=== PATIENT | female | born 1980 | race Caucasian/White ===

== ENCOUNTER 2020-06-08 01:49 | Emergency (ER) | payer OTHER ==
[2020-06-08 02:06] VITALS: BP 121/89
--- NOTE | 2020-06-08 02:53 | RADIOLOGY REPORT (SQ) ---
EXAM DESCRIPTION: CT HEAD WITHOUT IV CONTRAST COMPLETED DATE/TME: 06/08/2020 02:16 CLINICAL HISTORY: 40 years, Female, head injury after fall, + etoh COMPARISON: None. TECHNIQUE: Axial CT images of the brain were obtained without contrast. Sagittal and coronal reformats were performed. DLP 990 Images stored on PACS. All CT scanners at this facility use dose modulation, iterative reconstruction, and/or weight based dosing when appropriate to reduce radiation dose to as low as reasonably achievable (ALARA). [facility]: Dose Right [facility]: CareDose [facility]: Dose Right [facility]: Teradose 4D [facility]: [employer] LIMITATIONS: None. FINDINGS: There is a soft tissue swelling with subcutaneous emphysema along the right parietal scalp near the vertex. There is no underlying fracture. There is no acute cortical infarct, hemorrhage, mass, edema, hydrocephalus, or extra-axial fluid collection. The mckenna-white matter differentiation is normal. The paranasal sinuses and mastoid air cells are clear. IMPRESSION: No acute intracranial abnormality. Soft tissue swelling with subcutaneous emphysema along the right parietal scalp near the vertex. No underlying fracture. TECHNICAL DOCUMENTATION: Quality ID # [id number]: Final reports with documentation of one or more dose reduction techniques (e.g., Automated exposure control, adjustment of the mA and/or kV according to patient size, use of iterative reconstruction technique) copyright 2011 [employer]- All Rights Reserved
--- NOTE | 2020-06-08 03:07 | RADIOLOGY REPORT (SQ) ---
INDICATION: head injury intoxicated. COMPARISON: None CORRELATION: None TECHNIQUE: Noncontrast spiral axial CT images were obtained through the cervical spine with multiplanar reconstructions. This exam was performed according to our departmental dose-optimization program, which includes automated exposure control, adjustment of the mA and/or kV according to patient size and/or use of iterative reconstruction techniques. FINDINGS: No acute displaced fracture is identified of the cervical spine. Alignment is anatomic. . The uncovertebral joints and facets are within normal limits, for age. Reversal the normal cervical lordosis centered on C4-C5 Surrounding soft tissues of the neck are unremarkable. The pharynx appears symmetric. Thyroid is homogeneous. The lung apices are grossly clear. IMPRESSION: Imaging is degraded by patient motion, with resultant artifact. The best possible images were obtained. No acute bony injury is seen to the cervical spine. Reversal of the normal cervical lordosis centered on C4-C5 upper half due to positioning or spasm.
[2020-06-08] MEDS ORDERED: LIDOCAINE 2%/EPINEPHRINE INJ 20 ML VIAL INJ ONE (03:14)
--- NOTE | 2020-06-08 05:34 | ER Document Report ---
Entered by APOORVA CONROY SCRIBE 06/08/20 0219 Acting as scribe for:JENNIFER HODGE IV, MD ED Fall - General Chief Complaint: Fall Injury Stated Complaint: ETOH/HEAD INJURY Time Seen by Provider: 06/08/20 02:10 Primary Care Provider: PADMA DOSHI PA-C [Primary Care Provider] - 06/12/20 Mode of Arrival: Medic Information source: Patient, Friend, Emergency Med Personnel Notes: This 40 year old female patient brought in by EMS from home presents to the ED today with complaints of a fall with a head laceration that occurred just prior to arrival. Per ED nurse, patient was celebrating her birthday and has been drinking since 1700. Patient states that she fell and hit the right side of her head on the dresser. Friend at beside reports LOC. Tetanus is UTD within the past x4-5 years. - Related data Allergies/Adverse Reactions: No Known Allergies Allergy (Unverified 06/08/20 02:09) Past Medical History - General Information source: Patient, [facility] Records - Social History Smoking Status: Current Every Day Smoker Cigarette use (# per day): Yes Smoking Education Provided: No Frequency of alcohol use: Social Lives with: Spouse/Significant other Family History: Reviewed & Not Pertinent Patient has suicidal ideation: No Patient has homicidal ideation: No Review of Systems - Review of Systems Constitutional: No symptoms reported EENT: No symptoms reported Cardiovascular: No symptoms reported Respiratory: No symptoms reported Gastrointestinal: No symptoms reported Genitourinary: No symptoms reported Female Genitourinary: No symptoms reported Musculoskeletal: No symptoms reported Skin: See HPI, Other - Laceration Hematologic/Lymphatic: No symptoms reported Neurological/Psychological: See HPI, Lost consciousness, Headaches -: Yes All other systems reviewed and negative Physical Exam - Vital signs Vitals: Temp Pulse Resp BP Pulse Ox 97.3 F 93 16 121/89 H 96 06/08/20 01:57 06/08/20 01:57 06/08/20 01:57 06/08/20 01:57 06/08/20 01:57 - General General appearance: Alert In distress: None - HEENT Head: No: Atraumatic - 2 cm semilunate laceration to right parietal region Eyes: Normal Extraocular movements intact: Yes Pupils: PERRL - Respiratory Respiratory status: No respiratory distress Chest status: Nontender Breath sounds: Normal Chest palpation: Normal - Cardiovascular Rhythm: Regular Heart sounds: Normal auscultation Murmur: No Friction rub: No Gallop: None auscultated - Abdominal Inspection: Normal Distension: No distension Bowel sounds: Normal Tenderness: Nontender - Abdomen soft Organomegaly: No organomegaly - Back Back: Normal, Nontender - Extremities General upper extremity: Normal inspection General lower extremity: Normal inspection - Neurological Neuro grossly intact: Yes - Psychological Associated symptoms: Normal affect, Normal mood - Skin Skin irregularity: Laceration - 2 cm Location of irregularity: Scalp - Right parietal region Character of irregularity: Other - Semilunate Course - Re-evaluation Re-evalutation: 06/08/20 04:05 Results of ED MSE discussed with patient and patient's significant other. All questions were answered prior to discharge. Emergency signs and symptoms, reasons to return to the emergency department discussed with patient and patient's significant other. - Vital Signs Vital signs: Temp Pulse Resp BP Pulse Ox 97.3 F 93 16 121/89 H 96 06/08/20 01:57 06/08/20 01:57 06/08/20 01:57 06/08/20 01:57 06/08/20 01:57 - Diagnostic Test Radiology reviewed: Reports reviewed Procedures - Laceration/Wound Repair Right Posterior Head Time completed: 04:07 Wound length (cm): 2 Wound's Depth, Shape: Other - semilunar Laceration pre-procedure: Sterile PPE donned, Shur-Clens applied Anesthetic type: 2% Lidocaine Volume Anesthetic (mLs): 5 Wound explored: Clean Irrigated w/ Saline (mLs): 30 Wound Repaired With: [place] Layer Closure?: No Post-procedure NV exam normal: Yes Discharge - Discharge Clinical Impression: Accidental fall Qualifiers: Encounter type: initial encounter Qualified Code(s): W19.XXXA - Unspecified fall, initial encounter Scalp laceration Qualifiers: Encounter type: initial encounter Qualified Code(s): S01.01XA - Laceration without foreign body of scalp, initial encounter Condition: Stable Disposition: HOME, SELF-CARE Additional Instructions: Keep your wound clean and dry. You may shower but avoid submerging your head in a tub, pool or other body of water. You can apply a small amount of bacitracin or Neosporin to the area daily. Follow-up with your doctor in 5 days to have the laci removed. Return to the Emergency Department without delay if any worse. HOME CARE INSTRUCTIONS & INFORMATION: Thank you for choosing us for your medical needs. We hope you're satisfied with the care you received. After you leave, you must properly care for your problem and, at the same time, observe its progress. Any condition can change. Some illnesses can change rapidly over hours or days. If your condition worsens, return to the Emergency Department or see your physician promptly. ABOUT YOUR X-RAYS AND EKG'S: If you had an EKG or X-rays taken, they have been read by the Emergency Physician. The X-rays and EKG's will also be read by a Radiologist or [employer] within 24 hours. If discrepancies are noted, you will be notified by telephone. Please be certain the ED has a correct telephone number & address where you can be reached. Also, realize that some fractures or abnormalities do not show up on initial X-rays. If your symptoms continue, see your physician. ABOUT YOUR LABORATORY TEST: If you had laboratory tests, the results have been reviewed by the Emergency Physician. Some test results (for example cultures) may not be available for several days. You will be contacted if any test result shows you need additional treatment. Please be certain the ED has a correct telephone number and address where you can be reached. ABOUT YOUR MEDICATIONS: You will receive instructions on how to take your medicine on the prescription label you receive. Additional information may be provided by the Pharmacy. If you have questions afterwards, call the ED for clarification or further instructions. Some prescribed medications may cause d rowsiness. Do not perform tasks such as driving a car or operating machinery without consulting your Pharmacist. If you feel you need a refill of pain medication, your condition will need re-evaluation. Please do not call for a refill of any medication. ABOUT YOUR SIGNATURE: Signature of this document acknowledges to followin. Understanding that you received emergency treatment and that you may be released before al medical problems are known or treated. Please be certain the ED has a correct phone number & address where you can be reached. 2. Acknowledgement that you will arrange for follow-up care as recommended. 3. Authorization for the Emergency Physician to provide information to your follow-up Physician in order to maximize your care. AT ANY TIME, IF YOUR SYMPTOMS CHANGE SIGNIFICANTLY OR WORSEN OR YOU DEVELOP NEW SYMPTOMS, RETURN TO THE EMERGENCY DEPARTMENT IMMEDIATELY FOR RE-EVALUATION. OUR GOAL IS TO PROVIDE EXCELLENT MEDICAL CARE! WE HOPE THAT WE HAVE MET YOUR EXPECTATIONS DURING YOUR EMERGENCY DEPARTMENT VISIT AND THAT YOU FEEL YOU HAVE RECEIVED EXCELLENT CARE! Referrals: PADMA DOSHI PA-C [Primary Care Provider] - 06/12/20 I personally performed the services described in the documentation, reviewed and edited the documentation which was dictated to the scribe in my presence, and it accurately records my words and actions.
== END 2020-06-08 04:27 | disposition home or self-care (01) ==
LOC: ER 01:49
DX: S09.90XA Unspecified injury of head, initial encounter (principal); S01.01XA Laceration without foreign body of scalp, initial encounter; W01.190A Fall on same level from slipping, tripping and stumbling with subsequent striking against furniture, initial encounter; F17.210 Nicotine dependence, cigarettes, uncomplicated
CPT/HCPCS: 99284; 70450; 72125; 12001; J3490